=== PATIENT | female | born 1960 | race Caucasian/White ===

== ENCOUNTER 2019-12-03 13:15 | Emergency (ER) | payer OTHER, SELFPAY ==
[2019-12-03] VITALS (10 sets, daily range): BP systolic 150–181; BP diastolic 93–97; PULSE 57–124; RESP 17–20; TEMP 37.1; O2SAT 92–100; BMI 29.6
--- NOTE | 2019-12-03 13:42 | XR_ITS ---
WS: [id number] PORTABLE CHEST HISTORY: cp COMPARISON: 12/15/2018 Lungs are clear. Minimal blunting of the LEFT costophrenic angle. No pneumothorax. Cardiac size: Normal. Mediastinum/Aorta: Normal mediastinum. No osseous abnormality seen. XR/XR chest 1V portable [id number] IMPRESSION: Minimal blunting of the LEFT costophrenic angle. May be due to a small effusion or pleural thickening. Otherwise negative.
--- NOTE | 2019-12-03 13:42 | ECG_ITS ---
[facility] Test Date: 2019-12-03 Pat Name: Patricia Lowry Department: Room: Gender: Female Net Programmer: trina : 1960 Requested By: Bernard Thurman Order Number: [id number] Reading MD: Kyree John M.D. Measurements Intervals [place] Rate: 61 P: 44 MA: 152 QRS: 12 QRSD: 86 T: 30 QT: 399 QTc: 404 Interpretive Statements SINUS RHYTHM NONSPECIFIC T-WAVE ABNORMALITY Compared to ECG 12/15/2018 09:27:26 No significant changes Electronically Signed On 12-03-2019 17:07:26 CDT by Kyree John M.D. [email or web address]
--- NOTE | 2019-12-03 13:51 | W.ED.GENADLT ---
HPI - General Adult General: Chief complaint: General Medical Stated complaint: L SIDE PAIN Time Seen by Provider: 12/03/19 13:41 History of Present Illness: HPI narrative: Patient complains of a sharp and stabbing chest pain to the left anterolateral ribs. She has had some shortness of breath. Minimal nausea and diaphoresis. Pain is worse with movement or a deep breath. Patient denies any recent illness or cough. She has no cardiac history. Patient is not a cigarette smoker. Onset (ago): day(s) Location: chest Radiation: non-radiation Severity: severe Quality: stabbing and sharp Pain Consistency: constant Relieving factors: none Exacerbating factors: none Associated symptoms: Reports chest pain Treatments prior to arrival: NSAID Review of Systems General: Reports: 10 or more systems reviewed and unremarkable except in HPI and below Card: Reports: chest pain Physical Exam Const: COMMON NORMALS: no acute distress, patient oriented x3, no limitations and alert HENMT: COMMON NORMALS: normocephalic, atraumatic, external ears normal and Normal external nose present HEAD & SCALP: normocephalic and atraumatic FACE & SINUS: normal facial exam NOSE: Normal external nose present EXTERNAL EAR: Yes external ears normal MOUTH: Normal oral and palatal mucosa present Neck/C-Spine: COMMON NORMALS: full ROM, no lymphadenopathy, supple, no meningeal signs and no JVD GENERAL: Yes normal visual inspection Resp: COMMON NORMALS: normal respiratory effort, No retractions, No use of accessory muscles and clear to auscultation bilaterally AUSCULTATION: clear to auscultation bilaterally Cardio: COMMON NORMALS: no JVD, regular rate and regular rhythm RATE: regular rate RHYTHM: regular rhythm GI: COMMON NORMALS: Normal to inspection, nondistended, normoactive bowel sounds present, Soft to palpation, non-tender, No hepatosplenomegaly present and no masses INSPECTION: Yes normal to inspection AUSCULTATION: Yes normoactive bowel sounds PALPATION: Yes Soft to palpation and Yes No hepatosplenomegaly present PERCUSSION: normal to percussion : COMMON NORMALS: Yes no CVA tenderness and Yes normal external appearance BLADDER/KIDNEY EXAM: Yes no CVA tenderness Back/Pelvis: COMMON NORMALS: no CVA tenderness, thoracic and lumbar spine normal to inspection, no thoracic nor lumbar tenderness, thoraco-lumbar ROM normal and straight leg raise negative bilaterally Extremity: COMMON NORMALS: normal to inspection, full ROM, capillary refill normal, no joint enlargement, no clubbing, cyanosis or edema, no calf tenderness and no pedal edema Neuro: COMMON NORMALS: patient oriented x3, moves all extremities, no focal motor deficits and no sensory deficits noted SENSORIUM/ORIENTATION: Yes alert MENINGEAL SIGNS: Yes no meningeal signs Psych: COMMON NORMALS: mental status grossly normal, Normal thought process present, cooperative, normal affect and speech normal SPEECH: Yes normal speech THOUGHT PROCESS: Normal thought process present Skin: COMMON NORMALS: no rashes or lesions noted, no wounds, turgor normal, no jaundice, no petechiae and no mottling GENERAL SKIN EXAM: no rashes or lesions noted and turgor normal Course Vital Signs: Vital signs: Vital Signs Temperature 98.7 F 12/03/19 13:33 Pulse Rate 75 12/03/19 17:25 Respiratory Rate 18 12/03/19 17:32 Blood Pressure 150/93 12/03/19 17:25 Pulse Oximetry 95 12/03/19 17:32 [facility] - General Adult Lab Data: Labs: Lab Results 12/03/19 12/03/19 12/03/19 Range/Units 14:23 14:23 14:23 WBC 13.1 H (4.0-10.0) 10^3/ uL RBC 4.63 (4.1-5.3) 10^6/u L Hgb 12.4 (11.5-15.3) g/dL Hct 39.4 (37.0-47.0) % MCV 85.1 (81-99) fL MCH 26.8 L (28.0-34.0) pg MCHC 31.5 (30.0-36.0) g/dL RDW 13.1 (12.1-15.1) % Plt Count 324 (130-400) 10^3/c mm MPV 9.2 (7.4-10.4) fL Neut % (Auto) 79.1 % Lymph % (Auto) 10.5 % [place] % (Auto) 9.3 % Eos % (Auto) 0.5 % Baso % (Auto) 0.4 % Neut # (Auto) 10.40 H (1.8-7.7) 10^3/u L Lymph # (Auto) 1.4 (0.8-4.8) 10^3/u L [place] # (Auto) 1.2 H (0.2-0.9) 10^3/u L Eos # (Auto) 0.1 (0.0-0.8) 10^3/u L Baso # (Auto) 0.1 (0.0-0.1) 10^3/u L Nucleated RBC % (a uto) 0 % Nucleated RBCs # 0.0 /100WBC PT Cancelled INR Cancelled D-Dimer Cancelled Sodium Cancelled Potassium Cancelled Chloride Cancelled Carbon Dioxide Cancelled Anion Gap Cancelled BUN Cancelled Creatinine Cancelled GFR Calculation Cancelled Glucose Cancelled Calculated Osmolal ity Cancelled Calcium Cancelled Total Bilirubin Cancelled AST Cancelled ALT Cancelled Alkaline Phosphata se Cancelled Troponin T Baselin e Troponin T 120 Min nicko (0-10) ng/L NT-Pro-B Natriuret Pep Cancelled Total Protein Cancelled Albumin Cancelled Globulin Cancelled 12/03/19 12/03/19 12/03/19 Range/Units 14:23 14:57 14:57 WBC (4.0-10.0) 10^3/ uL RBC (4.1-5.3) 10^6/u L Hgb (11.5-15.3) g/dL Hct (37.0-47.0) % MCV (81-99) fL MCH (28.0-34.0) pg MCHC (30.0-36.0) g/dL RDW (12.1-15.1) % Plt Count (130-400) 10^3/c mm MPV (7.4-10.4) fL Neut % (Auto) % Lymph % (Auto) % [place] % (Auto) % Eos % (Auto) % Baso % (Auto) % Neut # (Auto) (1.8-7.7) 10^3/u L Lymph # (Auto) (0.8-4.8) 10^3/u L [place] # (Auto) (0.2-0.9) 10^3/u L Eos # (Auto) (0.0-0.8) 10^3/u L Baso # (Auto) (0.0-0.1) 10^3/u L Nucleated RBC % (a uto) % Nucleated RBCs # /100WBC PT 13.30 INR 0.98 D-Dimer 1.08 H Sodium 138 Potassium 3.8 Chloride 103 Carbon Dioxide 24 Anion Gap 14.8 BUN 10 Creatinine 0.7 GFR Calculation 85.6 L Glucose 106 Calculated Osmolal ity 282 L Calcium 9.6 Total Bilirubin 0.2 AST 19 ALT 15 Alkaline Phosphata se 94 Troponin T Baselin e Cancelled Troponin T 120 Min nicko (0-10) ng/L NT-Pro-B Natriuret Pep 43 Total Protein 7.1 Albumin 4.5 Globulin 2.6 12/03/19 12/03/19 Range/Units 14:57 16:52 WBC (4.0-10.0) 10^3/ uL RBC (4.1-5.3) 10^6/u L Hgb (11.5-15.3) g/dL Hct (37.0-47.0) % MCV (81-99) fL MCH (28.0-34.0) pg MCHC (30.0-36.0) g/dL RDW (12.1-15.1) % Plt Count (130-400) 10^3/c mm MPV (7.4-10.4) fL Neut % (Auto) % Lymph % (Auto) % [place] % (Auto) % Eos % (Auto) % Baso % (Auto) % Neut # (Auto) (1.8-7.7) 10^3/u L Lymph # (Auto) (0.8-4.8) 10^3/u L [place] # (Auto) (0.2-0.9) 10^3/u L Eos # (Auto) (0.0-0.8) 10^3/u L Baso # (Auto) (0.0-0.1) 10^3/u L Nucleated RBC % (a uto) % Nucleated RBCs # /100WBC PT INR D-Dimer Sodium Potassium Chloride Carbon Dioxide Anion Gap BUN Creatinine GFR Calculation Glucose Calculated Osmolal ity Calcium Total Bilirubin AST ALT Alkaline Phosphata se Troponin T Baselin e 8 Troponin T 120 Min nicko 8.00 (0-10) ng/L NT-Pro-B Natriuret Pep Total Protein Albumin Globulin Discharge Plan Discharge Patient Disposition: Home Clinical Impression: Pulmonary emboli Qualifiers: Pulmonary embolism type: unspecified Chronicity: acute Acute cor pulmonale presence: unspecified Qualified Code(s): I26.99 - Other pulmonary embolism without acute cor pulmonale Condition: Stable Prescriptions: New Eliquis DVT-PE Treat 30D Start 5 mg (74 tabs) tablets,dose pack See Rx Instructions .ROUTE .COMPLEX Qty: 74 RF: 0 hydrocodone-acetaminophen 5-325 mg tablet 1 tab PO Q4H PRN (Reason: pain) Qty: 20 RF: 0 No Action Tylenol 325 mg Tablet 975 mg PO PRN PRN (Reason: Pain) RF: 0 ibuprofen 200 mg Tablet 400 mg PO PRN PRN (Reason: Pain) RF: 0 Discharge Orders: Discharge Order (Routine); Ordered 12/03/19 Ordered By: Bernard Watts Referrals: Ciara Gann MD [Primary Care Provider] - Coding Level of Care Code ED Surgery Scheduling Coordinator for Chg Fwd Exam Comprehensive
[2019-12-03 14:33] LABS: Basophils # 0.1 10^3/uL (0.0-0.1); Basophils % 0.4 %; Eosinophils # 0.1 10^3/uL (0.0-0.8); Eosinophils % 0.5 %; Hematocrit 39.4 % (37.0-47.0); Hemoglobin 12.4 g/dL (11.5-15.3); Lymphocytes # 1.4 10^3/uL (0.8-4.8); Lymphocytes % 10.5 %; Mean Corpuscular HGB Conc 31.5 g/dL (30.0-36.0); Mean Corpuscular Hemoglobin 26.8 pg (28.0-34.0); Mean Corpuscular Volume 85.1 fL (81-99); Mean Platelet Volume 9.2 fL (7.4-10.4); Monocytes # 1.2 10^3/uL (0.2-0.9); Monocytes % 9.3 %; Neutrophils % 79.1 %; Nucleated Red Blood Cells % 0 %; Platelet Count 324 10^3/cmm (130-400); Red Blood Count 4.63 10^6/uL (4.1-5.3); Red Cell Distribution Width 13.1 % (12.1-15.1); White Blood Count 13.1 10^3/uL (4.0-10.0)
[2019-12-03] MEDS: morphine 4 mg/mL SDV 1 mL 6 MG IVP (14:39)
[2019-12-03] MEDS: ondansetron 2 mg/ML SDV 2 mL 4 MG IVP (14:51)
[2019-12-03] MEDS: fentaNYL 50 mcg/mL INJ 2mL IVP ×2 (15:03→16:25)
[2019-12-03 15:21] LABS: Troponin(5th) Baseline 8 ng/L (0-10)
[2019-12-03 15:29] LABS: Alanine Aminotransferase 15 U/L (0-33); Albumin Level 4.5 g/dL (3.5-5.2); Alkaline Phosphatase 94 IU/L (35-105); Anion Gap 14.8 (5-19); Aspartate Amino Transferase 19 U/L (0-32); Blood Urea Nitrogen 10 mg/dL (6-20); Calcium 9.6 mg/dL (8.5-10.5); Carbon Dioxide 24 mmol/L (22-29); Chloride 103 mmol/L (98-107); Globulin 2.6 g/dL (1.3-4.6); Glomerular Filtration Rate 85.6 mL/min (90-130); Glucose 106 mg/dL (65-115); NT Pro B Type Natriuretic Pept 43 pg/mL (0-125); Osmolality Calculated 282 mOsm/kg (285-295); Potassium 3.8 mmol/L (3.5-5.1); Sodium 138 mmol/L (136-145); Total Bilirubin 0.2 mg/dL (0.15-1.2); Total Protein 7.1 g/dL (6.6-8.7)
--- NOTE | 2019-12-03 15:42 | ECG_ITS ---
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 Measurements Intervals [place] Rate: 56 P: 44 MI: 151 QRS: 23 QRSD: 101 T: 48 QT: 408 QTc: 394 Interpretive Statements SINUS BRADYCARDIA NONSPECIFIC T-WAVE ABNORMALITY Compared to ECG 12/03/2019 13:32:18 Sinus rhythm no longer present T-wave abnormality still present Electronically Signed On 12-03-2019 17:12:38 CDT by Kyree John M.D. [id number]
[2019-12-03 15:47] LABS: INR 0.98 (0.8-1.2)
[2019-12-03 15:49] LABS: D Dimer 1.08 ug/mIFEU (0-0.59)
--- NOTE | 2019-12-03 15:54 | CT_ITS ---
WS: [id number] CTA scan of the chest with IV contrast. Additional two-dimensional coronal and sagittal reconstructio n and MIP images was performed. 12/03/2019 Clinical Data: rib pain Comparison: Portable chest, 12/03/2019 DLP: 593.[address] scans at [facility] use at least one of these dose optimization techniques: automat ed exposure control; mA and/or kV adjustment per patient size (includes targeted exams where dose is matched to clinical indication); or iterative reconstruction. Findings: The central pulmonary arteries pulmonary arteries fill normally with no evidence of large intralumina l filling defects. The branches of the left descending pulmonary artery demonstrate small intralumina l defects consistent with pulmonary embolic disease. There are also small intraluminal defects in the small arteries of the right lower lobe. No nodules, masses or effusions are seen. The heart size is large with no pericardial effusion. The t horacic aorta demonstrates no abnormalities or dilatations. The trachea bifurcates normally into the bronchi. There is no axillary or significant mediastinal adenopathy. The thyroid gland shows enlargem ent of the right lobe with deviation of the trachea from right to left. There are calcifications with in the right lobe of the thyroid. The upper abdomen shows large gallstones, but the liver, spleen, pancreas and adrenal glands are unr emarkable. The kidneys appear to be normal. The bones of the thoracic and upper lumbar spine demonstrate moderate osteoarthritis.. CT/CT angio chest PE protcl [id number] Impression: 1. Small intraluminal defects especially in the small arteries of the left lowe r lobe with even smaller intraluminal defects in the small arteries of the righ t lower lobe consistent with pulmonary embolic disease. 2. Enlargement of the right lobe of thyroid. 3. Cholelithiasis.
[2019-12-03] MEDS: iohexol 350 mg/mL 100 mL Btl 75 ML IV (16:15)
[2019-12-03 17:14] LABS: Troponin 5 2HR Delta 0 ABS# (0-10)
[2019-12-03] MEDS: fentaNYL 50 mcg/mL INJ 2mL 100 MCG IVP (17:32)
[2019-12-03] MEDS: enoxaparin 80 mg/0.8 mL Syringe 75 MG SUBCUT (17:40)
== END 2019-12-03 18:03 | disposition home or self-care (01) ==
PROVIDERS: Emergency Provider Family Medicine; PCP Family Medicine
DX: I26.99 Other pulmonary embolism without acute cor pulmonale (principal)
CPT/HCPCS: 12345; 36415; 71045; 71275; 80053; 83880; 84484; 85025; 85378; 85610; 93005; 96372; 96374; 96375; 96376; 99283; 99284; J1650; J2270; J2405; J3010; Q9967

== ENCOUNTER 2020-01-29 11:26 | Outpatient (CLI) | payer OTHER, SELFPAY ==
--- NOTE | 2020-01-29 11:41 | MM_ITS ---
WS: [id number] BILATERAL SCREENING DIGITAL MAMMOGRAM WITH CAD HISTORY: Screening COMPARISON: 10/05/2015, 01/30/2017 and 03/05/2018 Bilateral CC and MLO views submitted. Computer aided detection analyzed. Breast composition: There are scattered areas of fibroglandular density. No suspicious masses, microc alcifications or architectural distortion. MM/[place] [id number] IMPRESSION: BI-RADS: 1-Negative FOLLOW UP: 1 Year Follow-up
== END 2020-01-29 11:27 | disposition home or self-care (01) ==
PROVIDERS: PCP Family Medicine; Visit Provider Family Medicine
DX: Z12.31 Encounter for screening mammogram for malignant neoplasm of breast (principal)
CPT/HCPCS: 77067

== ENCOUNTER 2020-08-02 14:15 | Outpatient (CLI) | payer SELFPAY ==
[2020-08-02 14:28] LABS: HF Add Manual Diff No
[2020-08-02 14:33] LABS: Alanine Aminotransferase 18 U/L (0-33); Albumin Level 4.4 g/dL (3.5-5.2); Alkaline Phosphatase 98 IU/L (35-105); Aspartate Amino Transferase 21 U/L (0-32); Blood Urea Nitrogen 13 mg/dL (8-23); Calcium 9.3 mg/dL (8.5-10.5); Carbon Dioxide 24 mmol/L (22-29); Chloride 103 mmol/L (98-107); Glucose 91 mg/dL (65-115); Osmolality Calculated 284 mOsm/kg (285-295); Sodium 137 mmol/L (136-145); Total Bilirubin 0.2 mg/dL (0.15-1.2); Total Protein 7.4 g/dL (6.6-8.7)
[2020-08-02 14:34] LABS: Anion Gap 14.1 (5-19); Potassium 4.1 mmol/L (3.5-5.1)
[2020-08-02 14:37] LABS: Basophils # 0.1 10^3/uL (0.0-0.1); Basophils % 0.5 %; Eosinophils # 0.1 10^3/uL (0.0-0.8); Eosinophils % 1.1 %; Hematocrit 41.7 % (37.0-47.0); Hemoglobin 13.3 g/dL (11.5-15.3); Lymphocytes # 2.3 10^3/uL (0.8-4.8); Lymphocytes % 23.9 %; Mean Corpuscular HGB Conc 31.9 g/dL (30.0-36.0); Mean Corpuscular Hemoglobin 27.4 pg (28.0-34.0); Mean Corpuscular Volume 85.8 fL (81-99); Mean Platelet Volume 9.5 fL (7.4-10.4); Monocytes # 0.8 10^3/uL (0.2-0.9); Monocytes % 8.7 %; Neutrophils # 6.21 10^3/uL (1.8-7.7); Neutrophils % 65.6 %; Nucleated Red Blood Cells % 0 %; Platelet Count 377 10^3/cmm (130-400); Red Blood Count 4.86 10^6/uL (4.1-5.3); Red Cell Distribution Width 13.2 % (12.1-15.1); White Blood Count 9.5 10^3/uL (4.0-10.0)
[2020-08-02 14:57] LABS: Chol HDL Ratio 3.41 mg/dL (0.0-4.40); Cholesterol 208 mg/dL (0-200); HDL Cholesterol 61 mg/dL (60-100); LDL Cholesterol Calculated 111 mg/dL (50-129); LDL HDL Ratio 1.82 RATIO (0.00-3.22); Thyroid Stimulating Hormone 1.68 uIU/mL (0.27-4.20); Triglycerides 181 mg/dL (0-150)
[2020-08-02 15:02] LABS: Estmated Average Glucose 100; Hemoglobin A1C 5.1 % (4.0-6.0)
== END 2020-08-02 14:16 | disposition home or self-care (01) ==
LOC: LAB 14:19
PROVIDERS: PCP Family Medicine; Visit Provider Dermatology
DX: Z13.9 Encounter for screening, unspecified (principal)

== ENCOUNTER 2021-04-19 15:19 | Outpatient (CLI) | payer OTHER, SELFPAY ==
--- NOTE | 2021-04-19 15:31 | MM_ITS ---
WS: [id number] BILATERAL DIGITAL SCREENING MAMMOGRAPHY WITH CAD CLINICAL INFORMATION: SCREENING HISTORY: Screening mammogram. No current complaints. COMPARISON: January 29, 2020 TECHNIQUE: Bilateral CC and MLO views. FINDINGS: Scattered fibroglandular densities bilaterally. A few tiny punctate calcifications. No suspicious foc al mass, asymmetry, calcifications, or architectural distortion. No evidence of malignancy. MM/[place] [id number] IMPRESSION: BI-RADS: 2-Benign FOLLOW UP: 1 Year Follow-up Recommend return to annual screening mammography.
== END 2021-04-19 15:20 | disposition home or self-care (01) ==
LOC: RADSHAW 15:28
PROVIDERS: PCP Family Medicine; Visit Provider Family Medicine
DX: Z12.31 Encounter for screening mammogram for malignant neoplasm of breast (principal)
CPT/HCPCS: 77067

== ENCOUNTER 2022-01-23 08:27 | Outpatient (CLI) | payer SELFPAY ==
[2022-01-23 08:46] LABS: HF Add Manual Diff No
[2022-01-23 08:50] LABS: Basophils # 0.1 10^3/uL (0.0-0.1); Basophils % 0.7 %; Eosinophils # 0.2 10^3/uL (0.0-0.8); Eosinophils % 2.5 %; Hematocrit 42.6 % (37.0-47.0); Hemoglobin 13.9 g/dL (11.5-15.3); Lymphocytes # 2.3 10^3/uL (0.8-4.8); Lymphocytes % 24.5 %; Mean Corpuscular HGB Conc 32.6 g/dL (30.0-36.0); Mean Corpuscular Hemoglobin 27.7 pg (28.0-34.0); Mean Platelet Volume 9.2 fL (7.4-10.4); Monocytes # 0.9 10^3/uL (0.2-0.9); Monocytes % 9.5 %; Neutrophils # 5.78 10^3/uL (1.8-7.7); Neutrophils % 62.6 %; Nucleated Red Blood Cells % 0 %; Platelet Count 324 10^3/cmm (130-400); Red Blood Count 5.01 10^6/uL (4.1-5.3); Red Cell Distribution Width 13.2 % (12.1-15.1); White Blood Count 9.2 10^3/uL (4.0-10.0)
[2022-01-23 09:22] LABS: Alanine Aminotransferase 19 U/L (0-33); Albumin Level 3.9 g/dL (3.5-5.2); Alkaline Phosphatase 102 U/L (35-105); Anion Gap 16.9 (5-19); Aspartate Amino Transferase 21 U/L (0-32); Blood Urea Nitrogen 10 mg/dL (8-23); Calcium 9.5 mg/dL (8.5-10.5); Carbon Dioxide 23 mmol/L (22-29); Chloride 103 mmol/L (98-107); Globulin 3.2 g/dL (1.3-4.6); Glomerular Filtration Rate 101.3 mL/min (90-130); Glucose 78 mg/dL (65-115); Osmolality Calculated 286 mOsm/kg (285-295); Potassium 3.9 mmol/L (3.5-5.1); Sodium 139 mmol/L (136-145); Thyroid Stimulating Hormone 3.01 uIU/mL (0.27-4.20); Total Bilirubin 0.3 mg/dL (0.15-1.2); Total Protein 7.1 g/dL (6.6-8.7)
[2022-01-23 09:33] LABS: Estmated Average Glucose 111; Hemoglobin A1C 5.5 % (4.0-6.0)
[2022-01-23 09:50] LABS: Chol HDL Ratio 3.63 mg/dL (0.0-4.40); HDL Cholesterol 60 mg/dL (60-100); LDL Cholesterol Calculated 126 mg/dL (50-129)
[2022-01-23 10:04] LABS: Cholesterol 218 mg/dL (0-200); Triglycerides 161 mg/dL (0-150)
== END 2022-01-23 08:28 | disposition home or self-care (01) ==
LOC: LAB 08:30
PROVIDERS: PCP Family Medicine; Visit Provider Dermatology
DX: Z01.89 Encounter for other specified special examinations (principal)

== ENCOUNTER 2023-01-02 08:36 | Outpatient (CLI) | payer OTHER, SELFPAY ==
--- NOTE | 2023-01-02 08:47 | MM_ITS ---
WS: [id number] BILATERAL SCREENING DIGITAL TOMOSYNTHESIS MAMMOGRAM WITH CAD HISTORY: SCREENING COMPARISON: 04/19/2021, 01/29/2020 Bilateral CC and MLO views with tomosynthesis and synthetic mammography submitted. Computer aided det ection analyzed. Breast composition: There are scattered areas of fibroglandular density. No suspicious masses, microc alcifications or architectural distortion. Scattered asymmetries are stable. IMPRESSION: MM/[place] [id number] BI-RADS: 1-Negative FOLLOW UP: 1 Year Follow-up
== END 2023-01-02 08:37 | disposition home or self-care (01) ==
LOC: RAD 08:41 → MOBLMAM 08:47
PROVIDERS: PCP Family Medicine; Visit Provider Family Medicine
DX: Z12.31 Encounter for screening mammogram for malignant neoplasm of breast (principal)
CPT/HCPCS: 77063; 77067

== ENCOUNTER 2023-07-23 17:10 | Outpatient (CLI) | payer SELFPAY ==
[2023-07-23 17:28] LABS: HF Add Manual Diff No
[2023-07-23 17:42] LABS: Basophils # 0.1 10^3/uL (0.0-0.1); Basophils % 0.6 %; Eosinophils # 0.3 10^3/uL (0.0-0.8); Hematocrit 41.3 % (36-47); Lymphocytes # 2.2 10^3/uL (0.8-4.8); Lymphocytes % 25.5 %; Mean Corpuscular HGB Conc 32.7 g/dL (30-55); Mean Corpuscular Hemoglobin 27.9 pg (27-33); Mean Corpuscular Volume 85.3 fl (85-98); Mean Platelet Volume 9.1 fL (7.4-10.4); Monocytes # 0.9 10^3/uL (0.2-0.9); Monocytes % 10.3 %; Neutrophils # 5.12 10^3/uL (1.8-7.7); Neutrophils % 60.4 %; Nucleated Red Blood Cells % 0 %; Platelet Count 337 10^3/cmm (157-399); Red Blood Count 4.84 10^6/uL (3.85-5.65); Red Cell Distribution Width 13.4 % (12.1-15.1); White Blood Count 8.47 10^3/uL (3.29-11.43)
[2023-07-23 20:38] LABS: 25 Hydroxy Vitamin D 33 ng/mL (30-100); Alanine Aminotransferase 31 U/L (0-33); Albumin Level 4.2 g/dL (3.5-5.2); Alkaline Phosphatase 106 U/L (35-105); Anion Gap 18.4 (5-19); Aspartate Amino Transferase 29 U/L (0-32); Blood Urea Nitrogen 8 mg/dL (8-23); Calcium 9.1 mg/dL (8.5-10.5); Carbon Dioxide 20 mmol/L (22-29); Chloride 104 mmol/L (98-107); Chol HDL Ratio 3.51 mg/dL (0.0-4.40); Cholesterol 228 mg/dL (0-200); Globulin 2.7 g/dL (1.3-4.6); Glucose 89 mg/dL (65-115); HDL Cholesterol 65 mg/dL (60-100); LDL Cholesterol Calculated 142 mg/dL (50-129); LDL HDL Ratio 2.18 RATIO (0.00-3.22); Osmolality Calculated 284 mOsm/kg (285-295); Potassium 4.4 mmol/L (3.5-5.1); Sodium 138 mmol/L (136-145); Thyroid Stimulating Hormone 3.14 uIU/mL (0.27-4.20); Total Bilirubin 0.2 mg/dL (0.15-1.2); Total Protein 6.9 g/dL (6.6-8.7); Triglycerides 105 mg/dL (0-150)
[2023-07-23 21:48] LABS: Estmated Average Glucose 108; Hemoglobin A1C 5.4 % (4.0-6.0)
== END 2023-07-23 17:11 | disposition home or self-care (01) ==
LOC: LAB 17:12
PROVIDERS: PCP Family Medicine; Visit Provider Dermatology
DX: Z51.89 Encounter for other specified aftercare (principal)

== ENCOUNTER → 2023-10-23 09:21 | Outpatient (BNVA) | payer SELFPAY | PROVIDERS: PCP Family Medicine; Visit Provider Specialist | DX: M25.562 Pain in left knee (principal) | CPT/HCPCS: 73560; 73565 ==

== ENCOUNTER 2024-01-21 10:18 | Outpatient (CLI) | payer OTHER, SELFPAY ==
--- NOTE | 2024-01-21 10:30 | CT_ITS ---
WS: [id number] CT LEFT KNEE, NONCONTRAST TECHNIQUE: Noncontrast CT of the LEFT knee to include the LEFT hip and ankle. CLINICAL INFORMATION: [facility] PROTOCOL COMPARISON: None. DLP: 905.[address] scans at [facility] use at least one of these dose optimization techniques: automated e xposure control; mA and/or kV adjustment per patient size (includes targeted exams where dose is matc hed to clinical indication); or iterative reconstruction. FINDINGS: Advanced arthritis LEFT knee with yalh-oo-[id number] articulation in the medial joint compartment. Hypertro phic patella. RIGHT ovarian cyst measuring 2.7 x 2.2 cm. Sigmoid diverticulosis. Degenerative arthritis sacroiliac joints. Prepatellar soft tissue edema. Trace suprapatellar effusion . CT/CT knee LT [facility] [id number] IMPRESSION: 1. Images obtained for preoperative purposes. 2. RIGHT ovarian cyst measuring 2.7 x 2.2 cm. This could be followed up with diane bedoya.
== END 2024-01-21 10:19 | disposition home or self-care (01) ==
PROVIDERS: PCP Family Medicine; Visit Provider Specialist
DX: M17.12 Unilateral primary osteoarthritis, left knee (principal); N83.201 Unspecified ovarian cyst, right side; Z01.818 Encounter for other preprocedural examination
CPT/HCPCS: 36415; 73700; 80053; 81003; 81015; 85025

== ENCOUNTER 2024-01-28 11:44 | Observation (INO) | payer OTHER, SELFPAY ==
[2024-01-28] VITALS (12 sets, daily range): BP systolic 94–168; BP diastolic 62–96; PULSE 48–55; RESP 12–19; TEMP 36.2–37.1; O2SAT 95–98; BMI 30.2
--- NOTE | 2024-01-28 07:06 | P.HPUD_ITS ---
Surgery/Procedure H&P Update DATE OF PROCEDURE: January 28, 2024 DATE H&P PERFORMED: 01/20/24 H&P UPDATE INFORMATION: I have reviewed H&P completed within last 30 days, I have examined patient prior to procedure, No changes to prior documentation and H&[place] is in [facility] [place] date indicated PRIMARY INDICATION FOR PROCEDURE: Primary osteoarthritis left knee PLANNED PROCEDURE: Operation Date: 01/28/24 08:35 Proposed Procedures p Abdulkadir Robot Total Knee Arthroplasty(Left) - Breanne Vazquez MD Related Problem List Diagnoses (1) Primary osteoarthritis of left knee:
[2024-01-28] MEDS: acetaminophen 1,000 MG/100 ML PIGGYBACK 400 MG IV ×3 (07:37→20:13)
[2024-01-28] MEDS: CELEcoxib 200 mg Capsule 400 MG PO (07:38)
[2024-01-28] MEDS: sodium chloride 0.9% 1,000 ML 30 ML IV (07:38)
[2024-01-28] MEDS: gabapentin 300 mg Capsule PO (07:39)
--- NOTE | 2024-01-28 08:28 | ANES.PREANE2 ---
Pre-Anesthetic Assessment Height/Weight: Height 5 ft 2 in Weight 165 lb Temp Pulse Resp BP Pulse Ox O2 Del Method 97.3 F L 53 L 18 168/96 98 Room Air 01/28/24 07:19 01/28/24 07:19 01/28/24 07:19 01/28/24 07:19 01/28/24 07:19 01/28/24 07:19 Preop Diagnosis: Arthritis Operation Date: 01/28/24 08:35 Proposed Procedures p Abdulkadir Robot Total Knee Arthroplasty(Left) - Breanne Vazquez MD Last intake: Intake Last Liquid Date 01/27/24 Last Liquid Time 23:00 Last Solid Date 01/27/24 Last Solid Time 22:00 Social No alcohol and No tobacco Exam alert, oriented x 3, clear to auscultation bilaterally and regular rate & rhythm Airway Submandibular: within normal limits Cervical ROM: within normal limits Mallampati: Class II Dentition: other (Few implants on the bottom that do not have caps) Anesthetic Plan ASA status: 2 Anesthesia: MAC and Regional (specify below) Other: No prior issue with anesthesia Patient had her other knee done 5 years ago and did well History of PE during COVID, on chronic Eliquis last taken 01/24 Denies any other lung issues or cardiac issues METs greater than 4 Labs 12/29 reviewed and scheduled for surgery EKG showing sinus bradycardia Plan for spinal anesthetic with peripheral nerve block Medications/Allergies Home Medications Medication Instructions Recorded Confirmed Last Taken Type ibuprofen 200 mg tablet 400 mg PO PRN PRN Pain 12/03/19 01/28/24 01/27/24 History clobetasol 0.05 % topical cream 1 applic topical .2x daily #60 06/20/22 01/27/24 Unknown Rx grams apixaban 5 mg tablet (Eliquis) 5 mg PO BID 01/20/24 01/27/24 01/25/24 History Allergies Allergy/AdvReac Type Severity Reaction Status Date / Time Sulfa (Sulfonamide Allergy Unknown Verified 01/27/24 08:24 Antibiotics) Current Medications Generic Name Dose Route Start Last Admin Trade Name Freq PRN Reason Stop Dose Admin Sodium Chloride 1,000 mls @ 30 mls/hr 01/28/24 07:15 01/28/24 07:38 Sodium Chloride 0.9% IV 01/29/24 07:14 30 mls/hr .Q24H ROGER Administration PFSH Anesthesia Social History Smoking and tobacco/nicotine status: never used tobacco/nicotine Alcohol intake: current Alcohol intake frequency: holidays/special occasions only Data Anesthesia Cardiac Studies: No Data to Display
[2024-01-28] MEDS: ceFAZolin 2,000 mg SDV 2000 MG IV (09:21)
[2024-01-28] MEDS: tranexamic acid 1,000 mg/10mL SDV 1000 MG IV (09:51)
[2024-01-28] MEDS: BUPivacaine liposome 13.3 mg/mL SDV 20 mL 266 MG INFILTRATI (10:21)
[2024-01-28] MEDS: BUPivacaine 0.5% INJ 30 mL 20 ML XX (10:21)
[2024-01-28] MEDS: vancomycin 1,000 MG SDV 1000 MG XX (10:21)
[2024-01-28] MEDS: ceFAZolin 1,000 mg SDV 2000 MG IRRIGATION (10:22)
--- NOTE | 2024-01-28 12:19 | XRR_ITS ---
PROCEDURE INFORMATION: Exam: XR Left Knee Exam date and time: 01/28/2024 12:27 PM Age: 63 years old Clinical indication: Device placement; Joint replacement hardware; Prior surgery; Surgery date: Post-operative (0-2 days); Surgery type: Status post total knee arthroplasty TECHNIQUE: Imaging protocol: Radiologic exam of the left knee. Views: 1 or 2 views. COMPARISON: CT knee LT [id number] 01/21/2024 10:43 AM FINDINGS: Bones/joints: Total-knee replacement. Anatomic alignment. Bone and metal are intact. Intra-articular and periarticular gas is present. Soft tissues: Normal. XR/XR knee LT 1-2V [id number] IMPRESSION: Normal following replacement.
--- NOTE | 2024-01-28 12:24 | PM.OP ---
Operative Report Date of procedure: January 28, 2024 Pre-op diagnosis: Left primary osteoarthritis of the knee with varus deformity and hyperextension Post-op diagnosis: Left primary osteoarthritis of the knee with varus deformity and hyperextension Post-op findings: Significant varus deformity and hyperextension of the knee. Also significant osteoarthritis with large osteophytes. Procedure done: Left total knee arthroplasty with Abdulkadir guidance Implants: The [employer] total knee system with a size 3 triathlon beaded cruciate retaining femur left, a triathlon titanium tibial component size 3 beaded, a triathlon X3 tibial bearing CS insert size 3 X 10 mm and a beaded triathlon titanium asymmetric patella size 32 x 10 mm Specimens removed/disposition: Bone, disposed of Pathology: None Surgeon: Breanne Vazquez MD Manager Of Exhibitions And Collections: Isatu Rodriges Manager Of Exhibitions And Collections: Services were required for retraction, positioning, intraoperative exposure, and closure. Anesthesia: Spinal (With MAC, ASA 2) Estimated blood loss (mL): 50 Tourniquet time (min): 0 (Not utilized) IV fluids (mL): 1,000 Urine output (mL): 250 Complications: None Findings: Severe osteoarthritis with varus and hyperextension as well as large osteophytes Condition: stable Disposition: PACU (Then discharged to floor for postoperative rehabilitation and pain management) Brief History: This 63-year-old woman initially presented to the clinic with complaints of left knee pain. She had previously had a right total knee arthroplasty in 2019, and she has done very well with this. She states that now the left knee is affecting her activities of daily living and she has significant pain. She is also losing strength. She continues to perform activities such as yoga, but has significant symptoms. After discussion in the office, the patient wished to proceed with operative intervention. Initially, she had an intra-articular gel 1 with no significant benefit. She returns subsequently wishing to proceed with knee arthroplasty. Risks and complications were discussed in the office. Consents were signed and questions were answered. Procedure: The patient was brought to the operating theater, and after undergoing spinal anesthetic, with MAC and with supplemental adductor canal block, ASA 2, the left lower extremity was prepped with Dura-Prep and draped in usual fashion following placement of a tourniquet high on the leg. The leg was then draped free.? Tourniquet was not elevated throughout the surgical procedure. Prior to commencement of the procedure, a surgical pause was performed, and at the time of the surgical pause, we confirmed the site and side of surgery. Additionally, we confirmed the appropriate and timely administration of preoperative antibiotics, Ancef 2 g.? The availability of equipment was confirmed, and the patient's identity was verbalized as well. Following the surgical pause, an incision was made centering over the patella continuing proximally and distally as necessary to allow access to the knee joint. Dissection continued through skin and soft tissues using a scalpel. Hemostasis was obtained using electrocautery. The skin incision was followed by a median parapatellar arthrotomy. The leg was extended and the patella was able to be displaced laterally.? Appropriate arrays and markers were placed in appropriate position for use of the Abdulkadir.? Preoperative planning had been accomplished and was discussed in detail with the Abdulkadir sales and marketing representative.? Intraoperative mapping of the femur and tibia was accomplished after the arrays were placed.? Internal markers were also placed.? Once we had accomplished the Abdulkadir mapping, we began the appropriate resections for placement of the prosthesis.? The plan was for a cruciate retaining left total knee arthroplasty. Once appropriate mapping had been accomplished retraction was established using manual retraction by surgical technicians and also the Abdulkadir leg positioner and retractors.? The knee was evaluated.? There was significant osteoarthritic change as well as an extension contracture and varus deformity.? Appropriate bone resection was accomplished using the Abdulkadir.? The femur was sized to a size 3.? Following femoral cuts, attention was directed to the tibia.? Osteophytes were removed prior to this portion of the procedure.? We had performed a medial release at the beginning of the procedure to allow for placement of the array.? Proximal tibia was evaluated, and it was felt that appropriate size for the tibia was a size 3.? Tray was noted to fit nicely with good coverage.? Rim fit was accomplished with the size 3. A trial reduction was accomplished after osteophytes have been removed as well as the medial and lateral menisci.? We had removed the anterior cruciate ligament at the beginning of the case and preserved the posterior cruciate ligament.? Trial reduction was accomplished with a size 3 femoral cruciate retaining component, a size 3 tibial tray and a size 3 CS tibial bearing insert which was 9 mm.? Secondary to the balancing of the knee, we elected to place a 10 mm insert for the actual component. Alignment was felt to be appropriate as well.? Trial components were removed after the femur had been drilled.? Prior to removal of the tibial tray which had been pinned in position with appropriate rotation as determined by the Abdulkadir plan, we broached the tibia.? Subsequently, the 4 drill holes were made for the prosthetic component.? All trial components were removed, and the wound was irrigated.? Plans were made for insertion of the prosthetic components.? Prior to this, the patella was manually prepared.? After resection of the articular surface with the jogging system, it was measured and measured a 32 mm patella.? We resected approximately 6 mm of patella.? Patellar height was restored with the patellar component. Once again, the wound was irrigated.? The Tritanium tibia was impacted into position.? The beaded femur was then impacted into position in a cementless fashion. The CS tibial insert was placed prior to placement of the femoral component. The patella was pressed into position with a patellar clamp.? Exparel was injected about the components deep and superficially.? The knee was then copiously irrigated with betadine and saline and suctioned dry. Attention was then directed to closure. Closure was accomplished with 0 Vicryl in the fascial tissues.? The suture line of 0 Vicryl was supplemented with strata fix, #1, with a running stitch from proximal to distal and a second running stitch from distal to proximal.? This was followed by Surgiflo and vancomycin powder.? Following this, a 2-0 Monocryl was used in the subcutaneous tissues, and the skin was closed with 3-0 Strata fix.? Care was taken to assure an excellent subcutaneous as well as skin closure.? A sterile dressing was then placed consisting of Dermabond Prineo, OpSite, ABD, sterile soft roll, and an Meliton wrap including over the foot. The patient was returned the Recovery Room in a satisfactory condition. X-rays were obtained and reviewed there.? The patient will be discharged to the floor for postoperative rehabilitation and pain management. Related Problem List Diagnoses (1) Primary osteoarthritis of left knee:
--- NOTE | 2024-01-28 12:41 | ANE.PACU2 ---
Inpatient post-anesthesia follow up: Airway intact: Yes Vital signs: Temperature 97.6 F Pulse Rate 49 Respiratory Rate 15 Blood Pressure 119/70 Pulse Oximetry 96 Oxygen Delivery Me thod Room Air Oxygen Flow Rate Fraction of Inspir ed Oxygen Hydration adequate: Yes Nausea and vomiting: No Pain level: 1 Mental status: Baseline
[2024-01-28] MEDS: CELEcoxib 200 mg Capsule PO (14:36)
[2024-01-28] MEDS: chlorhexidine gluconate 0.12% Btl 473 mL 30 ML MUCOUS MEM ×3 (14:40→20:13)
[2024-01-28] MEDS: oxyCODONE 5 mg IR Tab/Cap PO (14:46)
[2024-01-28] MEDS: calcium carbonate 500 mg Chew Tablet 1000 MG PO (18:14)
[2024-01-28] MEDS: ceFAZolin 2,000 mg SDV 2000 MG IVP (18:14)
[2024-01-28] MEDS: mupirocin oint 22 gm 1 APPLIC NASAL (18:15)
[2024-01-28] MEDS: sennosides-docusate Tablet 2 TAB PO (18:15)
[2024-01-28] MEDS: apixaban 5 mg Tablet PO (18:15)
[2024-01-28] MEDS: iron polysaccharide complex 150 mg Capsule PO (18:15)
[2024-01-28] MEDS: ondansetron 2 mg/ML SDV 2 mL 4 MG IVP (18:39)
[2024-01-29] VITALS: BP 124/74; PULSE 62; RESP 18; TEMP 36.5; O2SAT 97
[2024-01-29 00:48] VITALS: RESP 16
[2024-01-29] MEDS: oxyCODONE 5 mg IR Tab/Cap PO ×2 (00:48→07:49)
[2024-01-29] MEDS: CELEcoxib 200 mg Capsule PO ×2 (00:48→11:49)
[2024-01-29] MEDS: ceFAZolin 2,000 mg SDV 2000 MG IVP ×2 (00:49→10:44)
[2024-01-29 04:00] VITALS: BP 130/78; PULSE 62; RESP 18; TEMP 36.8; O2SAT 96
[2024-01-29] MEDS: acetaminophen 1,000 MG/100 ML PIGGYBACK 400 MG IV (04:44)
[2024-01-29 06:23] LABS: Basophils % 0.2 %; Eosinophils # 0.1 10^3/uL (0.0-0.8); Eosinophils % 1.4 %; Hematocrit 32.7 % (36-47); Lymphocytes # 1.1 10^3/uL (0.8-4.8); Lymphocytes % 10.8 %; Mean Corpuscular HGB Conc 32.4 g/dL (30-55); Mean Corpuscular Hemoglobin 27.5 pg (27-33); Mean Corpuscular Volume 84.7 fl (85-98); Monocytes # 1.2 10^3/uL (0.2-0.9); Neutrophils # 7.54 10^3/uL (1.8-7.7); Neutrophils % 73.3 %; Nucleated Red Blood Cells % 0 %; Platelet Count 239 10^3/cmm (157-399); Red Blood Count 3.86 10^6/uL (3.85-5.65); White Blood Count 10.28 10^3/uL (3.29-11.43)
[2024-01-29 06:46] LABS: Anion Gap 12.1 (5-19); Blood Urea Nitrogen 8 mg/dL (8-23); Carbon Dioxide 24 mmol/L (22-29); Chloride 104 mmol/L (98-107); Creatinine Clr Calc Pharmacy 96.3479; Glomerular Filtration Rate 100.6 mL/min (90-130); Glucose 106 mg/dL (65-115); Osmolality Calculated 281 mOsm/kg (285-295); Potassium 4.1 mmol/L (3.5-5.1); Sodium 136 mmol/L (136-145)
[2024-01-29 07:35] VITALS: BP 109/74; PULSE 59; RESP 18; TEMP 36.8; O2SAT 96
[2024-01-29 07:49] VITALS: RESP 18; O2SAT 98
--- NOTE | 2024-01-29 09:28 | PC.CHAP ---
Pastoral Care Encounter/Spiritual Assessment Type of Contact [x] Declined vice investigator visit [] Patient/Family/Request visit [] Outpatient visit [] Follow-up visit [] Physician referral [] Code/Alert [] Routine visit [] Staff referral [] Actively dying [] Patient sleeping [] Family support [] [] Out of room [] Palliative care [] [] Receiving care in room [] Pre-surgical visit [] Trauma [] Long length of stay [] ICU visit [] Other: Relational/Emotional Strength [] Patient feels connected with others/family/visitors/staff [] Distress [] Loneliness/isolation [] Abandonment Spirituality of Patient [] Person of Jocelyn [] Attends Restorationism of their Jocelyn [] Believes in Prayer [] Reads Bible or Presybeterian materials [] There are Spiritual issues to be addressed Environmental Adviser Interventions [] Prayer [] Active listening [] Non-anxious presence [] Spiritual/emotional support [] Crisis/trauma care [] Spiritual counseling [] Bereavement support [] Provided bereavement packet [] Provided Bible/devotional materials [] Provided toy/stuffed animal, coloring book to patient or family member [] Provided Communion [] Anointing/B[place]ord [] Salvation [] Completed spiritual assessment [] Other: Impact on Illness or Injury [] Angry [] Fearful [] Anxious [] Often cries [] Exhaustion [] Unable to work [] Unable to attend evangelical [] Unable to walk/stand [] Unable to read [] Unable to drive [] Unable to eat/drink [] Unable to sleep [] Unable to be with family [] Patient intubated [] Other: Summary Time spent with patient
--- NOTE | 2024-01-29 10:38 | PC.NURSE ---
Morning medications late. 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 Morning meds will be passed by JAMIE Costello.
[2024-01-29] MEDS: cholecalciferol (vitamin D3) 1,000 unit Tablet 1000 UNIT PO (10:43)
[2024-01-29] MEDS: calcium carbonate 500 mg Chew Tablet 1000 MG PO (10:43)
[2024-01-29] MEDS: multivitamin therapeutic Tablet 1 TAB PO (10:44)
[2024-01-29] MEDS: chlorhexidine gluconate 0.12% Btl 473 mL 30 ML MUCOUS MEM (10:44)
[2024-01-29] MEDS: apixaban 5 mg Tablet PO (10:44)
[2024-01-29] MEDS: iron polysaccharide complex 150 mg Capsule PO (10:44)
[2024-01-29] MEDS: mupirocin oint 22 gm 1 APPLIC NASAL (10:45)
[2024-01-29 11:23] VITALS: BP 123/81; PULSE 64; RESP 18; TEMP 36.5; O2SAT 97
[2024-01-29] MEDS: acetaminophen 500 mg Tablet 1000 MG PO (11:49)
--- NOTE | 2024-01-29 12:55 | P.DS_ITS ---
Discharge Providers Date of Admission: 01/28/24 11:44 Date of Discharge: January 29, 2024 Attending Provider at Admission: Breanne Vazquez MD Attending Provider at Discharge: Breanne Vazquez MD Primary Care Provider: Ciara Gann MD Diagnoses at Discharge Discharge Diagnosis (1) Primary osteoarthritis of left knee: Status: Acute (2) Status post total left knee replacement using cement: Status: Acute Permanent problem details: Date of procedure: January 28, 2024 Diagnosis: Left primary osteoarthritis of the knee with varus deformity and hyperextension Procedure done: Left total knee arthroplasty with Abdulkadir guidance Implants: The [employer] total knee system with a size 3 triathlon beaded cruciate retaining femur left, a triathlon titanium tibial component size 3 beaded, a triathlon X3 tibial bearing CS insert size 3 X 10 mm and a beaded triathlon titanium asymmetric patella size 32 x 10 mm Reason for Visit Reason for Visit: M17.0 Brief History: This 63-year-old woman initially presented to the clinic with complaints of left knee pain. She had previously had a right total knee arthroplasty in 2019, and she has done very well with this. She states that now the left knee is affecting her activities of daily living and she has significant pain. She is also losing strength. She continues to perform activities such as yoga, but has significant symptoms. After discussion in the office, the patient wished to proceed with operative intervention. Initially, she had an intra-articular gel 1 with no significant benefit. She returns subsequently wishing to proceed with knee arthroplasty. Risks and complications were discussed in the office. Consents were signed and questions were answered. Hospital Course Hospital Course Patient was admitted under observation status following left total knee arthroplasty. On the first postoperative day, she participated with physical therapy. Dressings were removed. There was no evidence of DVT. There was no drainage. The patient was able to ambulate and was felt to be safe to be discharged home. Plans were made for home physical therapy. Physical Exam Const: COMMON NORMALS: no acute distress, average body habitus, patient oriented x3 and alert GENERAL APPEARANCE: cooperative and comfortable ORIENTATION/CONSCIOUSNESS: Yes awake HENMT: COMMON NORMALS: normocephalic and atraumatic HEAD & SCALP: normocephalic and atraumatic Eye: GENERAL EYE: appearance normal, both eyes and all related structures Chest: COMMONS NORMALS: normal inspection of the chest Resp: COMMON NORMALS: normal respiratory effort EFFORT & INSPECTION: Yes able to speak in complete sentences and Yes symmetric chest movement Extremity: LEFT LOWER EXTREMITY: Yes knee joint (Dressings are removed) Left knee: Yes inspection (No significant swelling or erythema), Yes ROM (Not evaluated) and Yes neurovascular exam (Intact distally) Neuro: COMMON NORMALS: patient oriented x3 SENSORIUM/ORIENTATION: Yes alert Psych: COMMON NORMALS: mental status grossly normal APPEARANCE: Yes grossly normal ATTITUDE: Yes calm and Yes engaged ATTENTION/CONCENTRATION: Yes attention grossly intact Skin: COMMON NORMALS: no rashes or lesions noted GENERAL SKIN EXAM: no rashes or lesions noted Urinary Catheter Management: Paul: Cath Placed During This Visit: yes Urinary Catheter Date of Insertion: 01/28/24 Urinary Catheter Time of Insertion: 09:35 Discharge Data Studies Completed and Pending Completed Studies During Hospitalization Category Date Time Status XR knee LT 1-2V 14311 Urgent Exams 01/28/24 12:19 Completed Radiology Impressions Knee X-Ray 01/28/24 12:19 IMPRESSION: Normal following replacement. Laboratory Results WBC 10.28 10^3/uL (3.29-11.43) 01/29/24 06:00 RBC 3.86 10^6/uL (3.85-5.65) 01/29/24 06:00 Hgb 10.60 g/dL (11.27-16.99) L 01/29/24 06:00 Hct 32.7 % (36-47) L 01/29/24 06:00 MCV 84.7 fl (85-98) L 01/29/24 06:00 MCH 27.5 pg (27-33) 01/29/24 06:00 MCHC 32.4 g/dL (30-55) 01/29/24 06:00 RDW 13.0 % (12.1-15.1) 01/29/24 06:00 Plt Count 239 10^3/cmm (157-399) 01/29/24 06:00 MPV 9.0 fL (7.4-10.4) 01/29/24 06:00 Neut % (Auto) 73.3 % 01/29/24 06:00 Lymph % (Auto) 10.8 % 01/29/24 06:00 Walton % (Auto) 12.0 % 01/29/24 06:00 Eos % (Auto) 1.4 % 01/29/24 06:00 Baso % (Auto) 0.2 % 01/29/24 06:00 Neut # (Auto) 7.54 10^3/uL (1.8-7.7) 01/29/24 06:00 Lymph # (Auto) 1.1 10^3/uL (0.8-4.8) 01/29/24 06:00 Walton # (Auto) 1.2 10^3/uL (0.2-0.9) H 01/29/24 06:00 Eos # (Auto) 0.1 10^3/uL (0.0-0.8) 01/29/24 06:00 Baso # (Auto) 0.0 10^3/uL (0.0-0.1) 01/29/24 06:00 Nucleated RBC % (auto) 0 % 01/29/24 06:00 Nucleated RBCs # 0.0 /100WBC 01/29/24 06:00 Sodium 136 mmol/L (136-145) 01/29/24 06:00 Potassium 4.1 mmol/L (3.5-5.1) 01/29/24 06:00 Chloride 104 mmol/L (98-107) 01/29/24 06:00 Carbon Dioxide 24 mmol/L (22-29) 01/29/24 06:00 Anion Gap 12.1 (5-19) 01/29/24 06:00 BUN 8 mg/dL (8-23) 01/29/24 06:00 Creatinine 0.6 mg/dL (0.5-0.9) 01/29/24 06:00 GFR Calculation 100.6 mL/min (90-130) 01/29/24 06:00 Glucose 106 mg/dL (65-115) 01/29/24 06:00 Calculated Osmolality 281 mOsm/kg (285-295) L 01/29/24 06:00 Calcium 8.0 mg/dL (8.5-10.5) L 01/29/24 06:00 Vitals Last Vital Signs Temp 97.7 F 01/29/24 11:23 Pulse 64 01/29/24 11:23 Resp 18 01/29/24 11:23 BP 123/81 01/29/24 11:23 Pulse Ox 97 01/29/24 11:23 O2 Del Method Room Air 01/29/24 11:23 Discharge Plan Discharge Patient Disposition: Home Health Service Condition: Stable Prescriptions: New acetaminophen 500 mg Tablet 1,000 mg PO Q8H 15 Days Qty: 90 0RF celecoxib 200 mg Capsule 200 mg PO 1XD 30 Days Qty: 30 0RF tramadol 50 mg Tablet 50 mg PO Q4H PRN (Reason: Moderate Pain) 7 Days Qty: 42 0RF Continued clobetasol 0.05 % cream 1 applic topical .2x daily Qty: 60 2RF Rx Instructions: Use 2x daily for 3 weeks or until affected area is healed. Eliquis 5 mg tablet 5 mg PO BID Held ibuprofen 200 mg Tablet 400 mg PO PRN PRN (Reason: Pain) Hold Instructions: Resume on 02/28/24. Following 30 days of Celebrex Discharge Orders: Discharge Order (Routine); Ordered 01/29/24 Ordered By: Breanne Vazquez Referrals: [facility]) [Outside] Ciara Gann MD [Primary Care Provider] - 02/03/24 2:15 pm Breanne Vazquez MD [Physician] - 02/12/24 10:30 am Discharge Diet: Advance as tolerated and Usual diet Discharge Activity: Increase activity as tolerated, Limit activity as in structed, Use walker/crutches as instructed and As per PT/OT instructions Patient Instructions: Tramadol (By mouth), Celecoxib (By mouth), Acute Wound Care (DC), Total Knee Replacement (DC), Joint Replacement Stoplight, Opioid Safety, Post Anesthesia Care Activity Restrictions/Additional Instructions: Weightbearing as tolerated. Range of motion, strengthening, and ambulation per physical therapy instructions. You may shower, but do not soak your leg in any standing water such as bath water, a pool, river, or mccall. Leave your plastic dressing in place until it comes off on its own. If it lifts up and begins to leak, then you may remove it. Discharge Attestations Time Spent in Discharge Care*: greater than 30 min Specific Discharge Activities: educating patient, documenting/other paperwork and evaluating patient/reviewing data Quality Metrics Clinical Quality Measures [ No reported AMI, CVA or VTE this stay] Coding Level of Care Code Acute Code for Chg Fwd Diagnoses Primary osteoarthritis of left knee M17.12 Status post total left knee replacement using cement Z96.652
[2024-01-29] MEDS: TRAMadol 50 mg Tablet PO (14:29)
--- NOTE | 2024-01-29 14:44 | PC.NURSE ---
D/C pending meds to beds and ride home. expected to be here shortly.
== END 2024-01-29 15:03 | disposition home health service (06) ==
LOC: MEDSURG 11:44
PROVIDERS: Admitting Provider Specialist; PCP Family Medicine; Visit Provider Specialist
PROC: 8E0Y0CZ Robotic Assisted Procedure of Lower Extremity, Open Approach (ICD-10-PCS; CPT 27447; principal; 2024-01-28 08:35)
DX: M17.12 Unilateral primary osteoarthritis, left knee (principal); M21.162 Varus deformity, not elsewhere classified, left knee
CPT/HCPCS: 20985; 27447; 36415; 51702; 73560; 80048; 85025; 97110; 97116; 97161; 97165; 97530; C1776; C9290; G0378; J0131; J0690; J2405; J2704; J3010; J3370; J3490; J7030

== ENCOUNTER → 2024-02-12 10:24 | Outpatient (BNVA) | payer OTHER, SELFPAY | PROVIDERS: PCP Family Medicine; Visit Provider Specialist | DX: Z96.652 Presence of left artificial knee joint (principal) | CPT/HCPCS: 73560; 73565 ==

== ENCOUNTER 2024-02-13 07:45 | Outpatient (RCR) | payer OTHER, SELFPAY | END 2024-03-12 23:59 | disposition home or self-care (01) | LOC: SPT 07:45 | PROVIDERS: PCP Family Medicine; Visit Provider Specialist | DX: Z47.1 Aftercare following joint replacement surgery (principal); Z96.652 Presence of left artificial knee joint | CPT/HCPCS: 97110; 97161 ==

== ENCOUNTER 2024-03-13 06:00 | Outpatient (RCR) | payer OTHER, SELFPAY | END 2024-03-27 23:59 | disposition home or self-care (01) | LOC: SPT 06:00 | PROVIDERS: PCP Family Medicine; Visit Provider Specialist | DX: Z47.1 Aftercare following joint replacement surgery (principal); Z96.652 Presence of left artificial knee joint | CPT/HCPCS: 97110 ==

== ENCOUNTER → 2024-03-23 08:27 | Outpatient (BNVA) | payer OTHER, SELFPAY | PROVIDERS: PCP Family Medicine; Visit Provider Specialist | DX: Z96.652 Presence of left artificial knee joint (principal); Z48.89 Encounter for other specified surgical aftercare; R03.0 Elevated blood-pressure reading, without diagnosis of hypertension | CPT/HCPCS: 73560; 73565 ==

== ENCOUNTER 2024-04-16 11:22 | Outpatient (CLI) | payer OTHER, SELFPAY ==
--- NOTE | 2024-04-16 11:26 | MM_ITS ---
WS: [id number] BILATERAL SCREENING DIGITAL TOMOSYNTHESIS MAMMOGRAM WITH CAD HISTORY: SCREENING COMPARISON: 01/02/2023, 04/19/2021 Bilateral CC and MLO views with tomosynthesis and synthetic mammography submitted. Computer aided det ection analyzed. Breast composition: There are scattered areas of fibroglandular density. No suspicious masses, microc alcifications or architectural distortion. Nodular tubular density in the medial RIGHT breast corresp onds to prominent veins. No mass identified. Stable appearance of the asymmetries within each breast. MM/MM scr tomosynthesis [id number] IMPRESSION: BI-RADS: 2 - Benign. FOLLOW UP: 1 Year Follow-up
== END 2024-04-16 11:23 | disposition home or self-care (01) ==
LOC: RAD 11:23
PROVIDERS: PCP Family Medicine; Visit Provider Family Medicine
DX: Z12.31 Encounter for screening mammogram for malignant neoplasm of breast (principal); R92.323 Mammographic fibroglandular density, bilateral breasts; N64.89 Other specified disorders of breast
CPT/HCPCS: 77063; 77067

== ENCOUNTER → 2024-08-17 10:17 | Outpatient (BNVA) | payer OTHER, SELFPAY | PROVIDERS: PCP Family Medicine; Visit Provider Specialist | DX: Z98.890 Other specified postprocedural states (principal); Z96.652 Presence of left artificial knee joint | CPT/HCPCS: 73560; 73565 ==

== ENCOUNTER 2025-01-21 09:27 | Outpatient (CLI) | payer SELFPAY ==
[2025-01-21 09:55] LABS: HF Add Manual Diff No
[2025-01-21 10:03] LABS: Estmated Average Glucose 126; Hemoglobin A1C 6.0 % (4.0-6.0)
[2025-01-21 10:06] LABS: Hematocrit 40.5 % (36-47); Hemoglobin 13.20 g/dL (11.27-16.99); Mean Corpuscular HGB Conc 32.6 g/dL (30-55); Mean Corpuscular Hemoglobin 27.9 pg (27-33); Mean Corpuscular Volume 85.6 fl (85-98); Nucleated Red Blood Cells % 0 %; Platelet Count 334 10^3/cmm (157-399); Red Blood Count 4.73 10^6/uL (3.85-5.65); White Blood Count 9.94 10^3/uL (3.29-11.43)
[2025-01-21 10:43] LABS: Alanine Aminotransferase 16 U/L (0-33); Albumin Level 4.2 g/dL (3.5-5.2); Alkaline Phosphatase 105 U/L (35-105); Anion Gap 15.2 (5-19); Aspartate Amino Transferase 17 U/L (0-32); Blood Urea Nitrogen 14 mg/dL (8-23); Calcium 9.3 mg/dL (8.5-10.5); Carbon Dioxide 24 mmol/L (22-29); Chloride 105 mmol/L (98-107); Cholesterol 229 mg/dL (0-200); Globulin 2.7 g/dL (1.3-4.6); Glucose 68 mg/dL (65-115); HDL Cholesterol 57 mg/dL (60-100); Osmolality Calculated 289 mOsm/kg (285-295); Potassium 4.2 mmol/L (3.5-5.1); Sodium 140 mmol/L (136-145); Thyroid Stimulating Hormone 3.91 uIU/mL (0.27-4.20); Total Protein 6.9 g/dL (6.6-8.7); Triglycerides 148 mg/dL (0-150)
== END 2025-01-21 09:28 | disposition home or self-care (01) ==
PROVIDERS: Visit Provider Dermatology
DX: Z01.89 Encounter for other specified special examinations (principal)

== ENCOUNTER → 2025-02-01 11:08 | Outpatient (BNVA) | payer OTHER, SELFPAY | PROVIDERS: Visit Provider Specialist | DX: Z47.89 Encounter for other orthopedic aftercare (principal); Z96.652 Presence of left artificial knee joint; Z96.651 Presence of right artificial knee joint | CPT/HCPCS: 73560; 73565 ==

== ENCOUNTER 2025-04-28 09:17 | Outpatient (CLI) | payer OTHER, SELFPAY ==
--- NOTE | 2025-04-28 09:24 | MM_ITS ---
WS: [id number] SCREENING DIGITAL BREAST TOMOSYNTHESIS MAMMOGRAM WITH CAD HISTORY: SCREENING COMPARISON: 04/16/2024, 01/02/2023, 04/19/2021 Bilateral CC and MLO with tomosynthesis and synthetic mammography submitted. Computer aided detection analyzed. Breast composition: There are scattered areas of fibroglandular density. Focal asymmetry anterior RIGHT breast at 10:00. Asymmetry is slightly of increased density as compared to prior studies. Additional imaging recommended. No additional changes. MM/MM scr BI tomosynthesis [id number] IMPRESSION: BI-RADS: 0 - Incomplete: Need additional imaging evaluation. FOLLOW UP: Need Additional Imaging RIGHT breast: Spot compression views (CC and MLO). True ML. Ultrasound to follo w if abnormality persists.
== END 2025-04-28 09:18 | disposition home or self-care (01) ==
LOC: RAD 09:18
PROVIDERS: PCP Family Medicine; Visit Provider Family Medicine
DX: Z12.31 Encounter for screening mammogram for malignant neoplasm of breast (principal); R92.323 Mammographic fibroglandular density, bilateral breasts; N64.89 Other specified disorders of breast
CPT/HCPCS: 77063; 77067